=== PATIENT | female | born 1960 | race Caucasian/White ===

== ENCOUNTER → 2019-11-07 | Outpatient (CLI) | payer OTHER ==
[~2019-11-07] MED LIST: CYCL10TA2 PO; FLUO20CA16 PO; IOHEXOL 240 MG/ML 50ML VIAL. PO ONE; IOHEXOL 300 MG/ML 100ML VIAL. IV ONE; NAPR500T8 PO; OMEP20TA8 PO
--- NOTE | 2019-11-07 10:20 | KCIC ---
CHEST PA LATERAL History: Primary neoplasm of the colon Comparison: None. Findings: Frontal and lateral views of the chest were obtained. The cardiomediastinal silhouette is normal. Pulmonary vasculature is normal. The lungs are clear. Calcified granulomas are present. No pleural effusion or pneumothorax is seen. There is no acute bone abnormality. IMPRESSION: No acute cardiopulmonary process. Electronically signed by: Kadeem Washington MD (11/07/2019 10:17 AM) [id number]
--- NOTE | 2019-11-07 10:26 | KCIC ---
Examination: CT ABD PELV W/ORAL IV CONTRAST History: Primary neoplasm of the colon Comparison/Correlation: None Findings: Axial images of the abdomen and pelvis were obtained following IV contrast. Sagittal and coronal reformatted images were provided. Oral contrast was utilized. The visualized lung bases are unremarkable although minimal linear scarring or atelectasis. The right middle lobe with extension to the mediastinum. Liver and spleen are normal. Pancreas is unremarkable. Adrenal glands are unremarkable. Kidneys are normal. Multiple calculi measuring at least 1 cm diameter are identified to fill the gallbladder. The largest of these measures 1.5 cm diameter. No surrounding inflammatory change. No biliary dilatation. Ascending colectomy is noted. No some narrowing of the proximal transverse colon is present which may represent contraction or spasm. This is seen on axial image 45 of series 2. No enlarged abdominal or pelvic lymph nodes. The bladder is unremarkable. Transitional L5 vertebra is noted. Compression deformity of L2 with vertebral body height loss of 50 percent is present. Deformity of the superior endplate in particular at L2 is seen. Impression: Cholelithiasis. No mass or enlarged lymph node. PQRS Compliance Statement: One or more of the following individualized dose reduction techniques were utilized for this examination: 1. Automated exposure control 2. Adjustment of the mA and/or kV according to patient size 3. Use of iterative reconstruction technique Electronically signed by: Kadeem Washington MD (11/07/2019 10:23 AM) [id number]
== END | disposition home or self-care (01) ==
LOC: KCIC CT 07:58
PROVIDERS: ATTEND Internal Medicine Hematology & Oncology
DX: K80.20 Calculus of gallbladder without cholecystitis without obstruction (principal); J84.10 Pulmonary fibrosis, unspecified; M43.8X6 Other specified deforming dorsopathies, lumbar region; D49.0 Neoplasm of unspecified behavior of digestive system; Z90.49 Acquired absence of other specified parts of digestive tract
CPT/HCPCS: 71046; 74177; Q9966; Q9967

== ENCOUNTER → 2019-11-07 | Outpatient (CLI) | payer OTHER ==
[~2019-11-07] MED LIST changes: -IOHEXOL 240 MG/ML 50ML VIAL. PO ONE; -IOHEXOL 300 MG/ML 100ML VIAL. IV ONE
[2019-11-07 10:36] LABS: BASO % 1 % (0-3); EOS # 0.1 x10^3/uL (0.0-0.7); EOS % 2 % (0-3); HEMATOCRIT 40.8 % (36.0-47.0); HEMOGLOBIN 13.8 g/dL (12.0-15.5); LYMPH # 1.5 x10^3/uL (1.0-4.8); LYMPH % 30 % (24-48); MEAN CORPUSCULAR HEMOGLOBIN 31 pg (25-35); MEAN CORPUSCULAR HGB CONC 34 g/dL (31-37); MEAN CORPUSCULAR VOLUME 93 fL (79-100); MONO # 0.3 x10^3/uL (0.0-1.1); MONO % 5 % (0-9); NEUT # 3.1 x10^3/uL (1.8-7.7); NEUT % 62 % (31-73); PLATELET COUNT 235 x10^3/uL (140-400); RED BLOOD COUNT 4.39 x10^6/uL (3.50-5.40); RED CELL DISTRIBUTION WIDTH 13.8 % (11.5-14.5); WHITE BLOOD COUNT 5.1 x10^3/uL (4.0-11.0)
[2019-11-07 10:59] LABS: CALCIUM 8.8 mg/dL (8.5-10.1); CREATININE 0.7 mg/dL (0.6-1.0); DIRECT BILIRUBIN 0.1 mg/dL (0.0-0.2); GFR 85.9; TOTAL BILIRUBIN 0.5 mg/dL (0.2-1.0); TOTAL PROTEIN 7.4 g/dL (6.4-8.2)
[2019-11-10 09:09] LABS: METHYLMALONIC ACID 332 nmol/L (0-378)
[2019-11-10 13:09] LABS: CEA 2.6 ng/mL (0.0-4.7)
== END | disposition home or self-care (01) ==
LOC: LAB 09:27
PROVIDERS: ATTEND Internal Medicine Hematology & Oncology
DX: C18.8 Malignant neoplasm of overlapping sites of colon (principal)
CPT/HCPCS: 36415; 80048; 80076; 82378; 82607; 82728; 83540; 83550; 83615; 83921; 85025

== ENCOUNTER → 2020-04-01 | Outpatient (CLI) | payer OTHER ==
--- NOTE | 2020-04-01 14:14 | KCIC ---
Study: CR KNEE RIGHT 3V Indication: Right knee pain after an injury 2-3 weeks prior. Comparison: None. Findings: No acute fracture. Mild medial femorotibial compartment joint space narrowing relative to the lateral compartment. Several small osteophytes. No large knee joint effusion is apparent by radiography. Impression: 1. No acute osseous abnormality. If there is concern for soft tissue injury consider eventual MRI. 2. Mild degenerative changes to include mild medial femorotibial compartment joint space narrowing. Electronically signed by: RFANCES CERVANTES MD (04/01/2020 2:11 PM) [id number]
== END | disposition home or self-care (01) ==
LOC: KCIC 10:51
PROVIDERS: ATTEND Nurse Practitioner Family
DX: M17.11 Unilateral primary osteoarthritis, right knee (principal); M25.761 Osteophyte, right knee
CPT/HCPCS: 73562

== ENCOUNTER → 2020-04-13 | Outpatient (CLI) | payer OTHER ==
--- NOTE | 2020-04-13 16:54 | KCIC ---
EXAMINATION: MRI RIGHT KNEE WITHOUT IV CONTRAST CLINICAL HISTORY: Right knee pain x one month. [place] a pop in back of knee. Pain behind patella. TECHNIQUE: Multiplanar multisequential images obtained through the knee without intravenous contrast. COMPARISON: Right knee radiographs 04/01/2020 FINDINGS: MENISCI: Medial Meniscus: Complex tear in the posterior horn Lateral Meniscus: Intact. LIGAMENTS: ACL: Intact PCL: Intact MCL: Intact LCL Complex: Intact CARTILAGE: Medial Femoral Condyle: Large area(s) of predominantly low grade (less than 50% thickness) cartilage loss and or fissuring with smaller area(s) of high grade (greater than 50% thickness) cartilage loss and or fissuring Medial Tibial Plateau: Normal Lateral Femoral Condyle: Small area(s) of low grade (less than 50% thickness) partial thickness cartilage loss and or fissuring Lateral Tibial Plateau: Normal Patella: Large area(s) of full thickness cartilage loss/fissuring with subchondral marrow reactive/cystic changes predominantly in the medial facet Trochlea: Normal TENDONS: The distal quadriceps and patellar tendons are intact. The popliteus tendon is intact. BONES AND MARROW: Mild marrow edema in the medial tibial plateau compatible with a small contusion. No evidence of acute fracture or suspicious marrow replacing process. MUSCLES: Muscle bulk and signal intensity within normal limits. JOINT FLUID AND SYNOVIUM: Small joint effusion. No synovitis. No Robledo's cyst. IMPRESSION: Complex medial meniscus tear with small bone contusion in the medial tibial plateau. Tricompartmental chondral wear, greatest in the patella. Electronically signed by: Nitish Reno DO (04/13/2020 4:52 PM) [id number]
== END ==
LOC: KCIC MRI 12:20
PROVIDERS: ATTEND Nurse Practitioner Family
DX: S83.241A Other tear of medial meniscus, current injury, right knee, initial encounter (principal); S80.11XA Contusion of right lower leg, initial encounter; M25.461 Effusion, right knee; X58.XXXA Exposure to other specified factors, initial encounter; Y93.89 Activity, other specified; Y92.89 Other specified places as the place of occurrence of the external cause; Y99.8 Other external cause status
CPT/HCPCS: 73721